=== PATIENT | male | born 1935 | race Caucasian/White ===

== ENCOUNTER 2022-07-20 12:55 | Day surgery (SDC) | payer OTHER ==
[2022-07-15 11:40] LABS: BASOPHILS # (AUTO) 0.1 X10'3 (0-0.2); BASOPHILS % (AUTO) 1.1 % (0-1); EOSINOPHILS # (AUTO) 0.2 X10'3 (0-0.9); HEMATOCRIT 44.9 % (42.0-52.0); HEMOGLOBIN 15.4 g/dl (14.0-17.9); LYMPHOCYTES # (AUTO) 1.2 X10'3 (1.1-4.8); LYMPHOCYTES % (AUTO) 22.9 % (21-51); MEAN CORPUSCULAR HGB CONC 34.3 g/dL (33.0-36.5); MEAN CORPUSCULAR VOLUME 93.2 FL (78-98); MEAN PLATELET VOLUME 7.6 FL (7.4-10.4); MONOCYTES # (AUTO) 0.5 X10'3 (0-0.9); MONOCYTES % (AUTO) 10.6 % (2-12); NEUTROPHILS # (AUTO) 3.1 X10'3 (1.8-7.7); NEUTROPHILS % (AUTO) 61.4 % (42-75); PLATELET COUNT 182 X10'3 (140-440); RED BLOOD COUNT 4.81 X10'6 (4.70-6.10); RED CELL DISTRIBUTION WIDTH 13.6 % (11.5-14.5); WHITE BLOOD COUNT 5.1 X10'3 (4.5-11.0)
[2022-07-15 11:47] LABS: ALBUMIN 3.4 G/DL (3.4-5.0); ANION GAP 1 (8-16); BLOOD UREA NITROGEN 21 MG/DL (7-18); BUN/CREATININE RATIO 20.2 (5.4-32.0); CALCIUM 9.1 MG/DL (8.5-10.1); CHLORIDE 108 MMOL/L (99-107); CREATININE 1.04 MG/DL (0.60-1.10); GLUCOSE 95 MG/DL (70-104); POTASSIUM 4.9 MMOL/L (3.5-5.1); SODIUM 139 MMOL/L (135-145); TOTAL CARBON DIOXIDE 30.5 MMOL/L (24-32); eGFR 68 ML/MIN
[2022-07-15 11:51] LABS: APTT 31 SECONDS (22-32)
[2022-07-20] VITALS (16 sets, daily range): BP systolic 100–155; BP diastolic 58–95
[~2022-07-20] VITALS: Ht 177.8 cm; Wt 133.8 kg
[2022-07-20] MEDS ORDERED: normal saline 1000ml 1,000 ML IV SCH (13:25)
[2022-07-20] MEDS ORDERED: MIDAZolam 1mg/ml 10ml vial IV ONE (13:25)
[2022-07-20] MEDS ORDERED: fentaNYL/PF 50MCG/1 ML 2ML syringe IV ONE (13:25)
[2022-07-20] MEDS ORDERED: CHOL100046 PO (13:55)
[2022-07-20] MEDS ORDERED: APIX5TAB3 PO (13:55)
[2022-07-20] MEDS ORDERED: GABA300C PO (13:55)
[2022-07-20] MEDS ORDERED: CALC-627 PO (13:55)
[2022-07-20] MEDS ORDERED: OXYB10TA30 PO (13:55)
[2022-07-20] MEDS ORDERED: PRED20TA PO (13:55)
[2022-07-20] MEDS ORDERED: SOTA80TA46 PO (13:55)
[2022-07-20] MEDS ORDERED: CYAN100T43 PO (13:55)
[2022-07-20] MEDS ORDERED: ALBU17AE26 INH (13:55)
[2022-07-20] MEDS ORDERED: ASCO500T19 PO (13:55)
[2022-07-20] MEDS ORDERED: AMLO1CAP23 PO (13:55)
== END 2022-07-20 17:10 | disposition home or self-care (01) ==
LOC: SSTAY O 12:55
PROVIDERS: ATTEND Student in an Organized Health Care Education/Training Program
DX: I48.91 Unspecified atrial fibrillation (principal); I10 Essential (primary) hypertension; Z79.899 Other long term (current) drug therapy; Z79.01 Long term (current) use of anticoagulants
CPT/HCPCS: 36415; 80048; 85025; 85610; 85730; 92960; 93005; J7030; A4620

== ENCOUNTER 2024-08-05 10:41 | Emergency (ER) | payer OTHER ==
[~2024-08-05] VITALS: Ht 177.8 cm; Wt 128.0 kg
[~2024-08-05 10:41] MED LIST: ALBU17AE26 INH; AMLO1CAP23 PO; APIX5TAB3 PO; ASCO500T19 PO; CALC-627 PO; CHOL100046 PO; CYAN100T43 PO; GABA300C PO; OXYB10TA30 PO; PRED20TA PO; SOTA80TA46 PO
[2024-08-05 10:44] VITALS: TEMP 97.5
[2024-08-05 11:33] LABS: BASOPHILS % (AUTO) 0.6 % (0-1); EOSINOPHILS # (AUTO) 0.1 X10'3 (0-0.9); EOSINOPHILS % (AUTO) 2.5 % (0-6); HEMATOCRIT 42.3 % (42.0-52.0); HEMOGLOBIN 14.3 g/dl (14.0-17.9); LYMPHOCYTES # (AUTO) 0.9 X10'3 (1.1-4.8); LYMPHOCYTES % (AUTO) 19.4 % (21-51); MEAN CORPUSCULAR HEMOGLOBIN 31.5 PG (27.0-31.0); MEAN CORPUSCULAR HGB CONC 33.8 g/dL (33.0-36.5); MEAN CORPUSCULAR VOLUME 93.4 FL (78-98); MEAN PLATELET VOLUME 7.7 FL (7.4-10.4); MONOCYTES # (AUTO) 0.5 X10'3 (0-0.9); MONOCYTES % (AUTO) 10.3 % (2-12); NEUTROPHILS # (AUTO) 3.2 X10'3 (1.8-7.7); NEUTROPHILS % (AUTO) 67.2 % (42-75); PLATELET COUNT 173 X10'3 (140-440); RED BLOOD COUNT 4.53 X10'6 (4.70-6.10); RED CELL DISTRIBUTION WIDTH 13.5 % (11.5-14.5); WHITE BLOOD COUNT 4.8 X10'3 (4.5-11.0)
[2024-08-05 11:52] LABS: ALANINE AMINOTRANSFERASE 33 U/L (12-78); ALBUMIN 3.3 G/DL (3.4-5.0); ALBUMIN/GLOBULIN RATIO 0.8 (1.1-1.5); ALKALINE PHOSPHATASE 88 IU/L (46-116); ANION GAP 7 (8-16); ASPARTATE AMINO TRANSFERASE 36 U/L (10-37); BILIRUBIN,TOTAL 0.5 MG/DL (0.1-1.0); BLOOD UREA NITROGEN 28 MG/DL (7-18); CALCIUM 8.9 MG/DL (8.5-10.1); CHLORIDE 106 MMOL/L (99-107); CREATININE 1.12 MG/DL (0.60-1.10); GLUCOSE 99 MG/DL (70-104); POTASSIUM 4.8 MMOL/L (3.5-5.1); SODIUM 142 MMOL/L (135-145); TOTAL PROTEIN 7.3 G/DL (6.4-8.2); eCRCL 49 ML/MIN; eGFR 62 ML/MIN
[2024-08-05 11:55] LABS: PRO BRAIN NATRIURETIC PEPTIDE 69 PG/ML (0-450)
[2024-08-05] MEDS: mag hydrox/Alum hydrox/simeth 30ml oral suspension PO ONE (14:27)
[2024-08-05] MEDS: LIDOcaine 2% Viscous 15ml cup MM PRN (14:27)
[2024-08-05 15:38] VITALS: BP 160/67; PULSE 57; RESP 16; O2SAT 98
== END 2024-08-05 16:02 | disposition home or self-care (01) ==
LOC: ER 10:41
DX: R07.89 Other chest pain (principal); Z88.5 Allergy status to narcotic agent; Z79.899 Other long term (current) drug therapy
CPT/HCPCS: 36415; 71045; 80053; 83880; 84484; 85025; 93005; 99285; A6449

== ENCOUNTER 2025-02-14 12:46 | Emergency (ER) | payer OTHER ==
[~2025-02-14] VITALS: Ht 177.8 cm; Wt 131.9 kg
[2025-02-14 13:00] VITALS: TEMP 97.6
[2025-02-14 13:22] LABS: MEAN PLATELET VOLUME 8.1 FL (7.4-10.4); RED CELL DISTRIBUTION WIDTH 13.4 % (11.5-14.5)
--- NOTE | 2025-02-14 13:22 | ELECTROCARDIOGRAPH REPORT ---
[facility] Test Date: 2025-02-14 Test Time: 12:52:09 Pat Name: CHRISTOPHER BATRES Department: EMERGENCY ROOM Room: Gender: M Curam Developer: ADAMS : 1935 Requested By: EARNEST SINGH Order Number: [id number] Reading MD: Measurements Intervals [place] Rate: 99 P: 0 RI: 0 QRS: 97 QRSD: 88 T: 50 QT: 330 QTc: 424 Interpretive Statements Right and left arm electrode reversal, interpretation assumes no reversal Atrial fibrillation Right axis deviation Please click the below link to view image of tracing.
--- NOTE | 2025-02-14 13:31 | RADIOLOGY REPORT ---
EXAM: DI CHEST,SINGLE VIEW Indication: CP Technique: Single frontal view of the chest was obtained Comparison: DI CHEST,SINGLE VIEW on DOS: 08/05/24 FINDINGS: Lines and Tubes: None Lungs: No focal consolidation. Pleura: No effusion. No pneumothorax. Cardiomediastinal contours: Unremarkable. Atherosclerotic vascular calcifications of the thoracic aorta are noted. Bones: No acute osseous abnormality. IMPRESSION: No acute cardiopulmonary disease.
[2025-02-14 13:42] LABS: CREATININE 1.21 MG/DL (0.60-1.10); PRO BRAIN NATRIURETIC PEPTIDE 388 PG/ML (0-450); TOTAL CARBON DIOXIDE 28.7 MMOL/L (24-32); eCRCL 44 ML/MIN; eGFR 57 ML/MIN
--- NOTE | 2025-02-14 16:49 | Physician Documentation ---
History of Present Illness ~ Chief Complaint: Irregular Heartbeat Stated Complaint: IRREG HEART RATE Time Seen by MD: 16:03 Source: patient Exam Limitations: no limitations HPI Mr. Goodson is an 89 y/o male with PMHx significant for paroxysmal A-fib on Eliquis who presents today for evaluation of his A-fib. He states that he wears a smart watch and it told him that he was in A-fib. He is completely asymptomatic. He denies chest pain/pressure/palpitations or discomfort. No SOB or difficulty breathing. Medication Reconciliation Allergies: Coded Allergies: morphine (Verified Allergy, Unknown, 02/14/25) Scheduled Amlodipine Besylate/Benazepril (Lotrel 5-20 Mg Capsule), 1 CAP PO DAILY, (Reported) Apixaban (Eliquis), 1 TAB PO BID, (Reported) Ascorbic Acid/Ascorbate Sodium (Vitamin C 500 mg Tablet Chew), 1 TAB PO DAILY, (Reported) Calcium/Magnesium (Calcium Magnesium Tablet), 1 TAB PO DAILY, (Reported) Cholecalciferol (Vitamin D3) (Vitamin D3), 1 CAP PO DAILY, (Reported) Cyanocobalamin (Vitamin B-12) (Vitamin B-12), 1 TAB PO DAILY, (Reported) Gabapentin (Neurontin), 1 CAP PO DAILY, (Reported) Oxybutynin Chloride (Ditropan Xl), 1 TAB PO DAILY, (Reported) Prednisone* (Prednisone*), 1 TAB PO DAILY, (Reported) Sotalol HCl (Sotalol), 0.5 TAB PO Q12H, (Reported) Scheduled PRN Albuterol (Albuterol), 1 PUFF INH Q6H PRN for SOB or wheezing, (Reported) Review of Systems All Other Systems at this time: Reviewed and Negative Physical Exam Vital Signs: RN Vital Signs have been reviewed: Yes, Temperature: 97.6, Source: Temporal, Heart Rate: 78, Respiratory Rate: 16, BP: 135/81, Pulse Oximetry: 98, Weight: 131.900 Oxygen Flow Rate: 0 General Appearance: alert, WD/WN, no apparent distress EENT: normal ENT inspection Neck: normal inspection Respiratory: lungs clear Chest: no accessory muscle use Cardiovascular: normal peripheral pulses Back: normal inspection Extremities: normal inspection Neurologic: oriented x4 Psych: normal mood/affect Skin: normal color Progress Results/Orders Results/Orders Orders - FONTENETTE,EARNEST W MD Chest,Single View (02/14/25 12:59) Monitor (02/14/25 12:59) Saline Lock (02/14/25 12:59) Oxygen (02/14/25 12:59) Hs Troponin I W Calculations (02/14/25 15:59) Electrocardiogram (02/14/25 16:32) Completed Orders - EARNEST SINGH MD Chest,Single View (02/14/25 12:59) Cbc/Diff (02/14/25 12:59) BMP (02/14/25 12:59) PBNP (02/14/25 12:59) Electrocardiogram (02/14/25 12:59) Hs Troponin I W Calculations (02/14/25 12:59) Hs Troponin I W Calculations (02/14/25 14:59) Vital Signs 02/14/25 02/14/25 13:00 16:05 Temp 97.6 Pulse 76 78 Resp 22 16 B/P (MAP) 113/80 135/81 (99) Pulse Ox 97 98 O2 Flow Rate 0 Laboratory Tests Test 02/14/25 13:14 02/14/25 15:08 White Blood Count 5.4 Red Blood Count 4.49 L Hemoglobin 14.1 Hematocrit 42.2 Mean Corpuscular Volume 93.9 Mean Corpuscular Hemoglobin 31.5 H Mean Corpuscular Hemoglobin Concent 33.5 Red Cell Distribution Width 13.4 Platelet Count 203 Mean Platelet Volume 8.1 Neutrophils (%) (Auto) 65.0 Lymphocytes (%) (Auto) 20.8 L Monocytes (%) (Auto) 10.6 Eosinophils (%) (Auto) 2.9 Basophils (%) (Auto) 0.7 Neutrophils # (Auto) 3.5 Lymphocytes # (Auto) 1.1 Monocytes # (Auto) 0.6 Eosinophils # (Auto) 0.2 Basophils # (Auto) 0.0 CBC Comment Sodium Level 140 Potassium Level 5.3 H Chloride Level 106 Carbon Dioxide Level 28.7 Anion Gap 5 L Blood Urea Nitrogen 29 H Creatinine 1.21 H Estimated GFR/1.73 m2 57 BUN/Creatinine Ratio 24.0 H Glucose Level 107 H Calcium Level 9.2 Troponin I High Sensitivity 7 7 Pro-B-Type Natriuretic Peptide 388 Albumin 3.2 L Chemistry Comments Troponin I High Sens Percent Delta 0 Troponin I Hi Sens Absolute Change 0 EKG/XRAY/CT/US/VASC/MRI EKG : Intepreting Monitor?: Yes Additional Comment EKG (as interpreted by me): Time obtained: 1252 Time interpreted by me: 1253 Rate: 99 Rhythm: Atrial fibrillation [facility]: RAD ST waves: Nonspecific Interpretations: Atrial Fibrillation Medical Decision Making Differential Dx:Considerations: Include: angina / NV, atrial dysrhythmia, atrial fibrillation, atrial flutter, MAT, PACs, PSVT, sinus tachycardia, WPW, 3rd degree AV block Additional Information Mr. Goodson is an 89 y/o male with PMHx significant for pA-fib who presents to the ED for evaluation of his A-fib. While here in the ED, he remained hemodynamically normal with ABC's intact and in NAD. He is afebrile and nontoxic. I reviewed his EKG and it shows A-fib with a rate of 99. He is asymptomatic. He is currently prescribed Eliquis for secondary Stroke prevention. Troponin was flat. Lytes are within normal ranges. No leukocytosis or left shift. I have low clinical suspicion for ACS or an acute infectious process. We discussed admission for evaluation by Cardiology but he requested to go home and follow-up outpatient and that he would continue taking his Eliquis as prescribed. He was given follow-up and return instructions. He voiced understanding and agreement with d/c instructions. Departure Disposition: HOME / SELF CARE / HOMELESS Impression: Primary Impression: Atrial fibrillation Condition: Improved Referrals: NO PRIMARY CARE PROVIDER (PCP) Education Educated: Patient, Family Educated regarding: diagnosis, treatment Signature Scribe Signature: N/A Attestation: N/A EARNEST SINGH MD Feb 14, 2025 16:49
[2025-02-14 16:59] VITALS: BP 124/70; PULSE 81; RESP 20; O2SAT 98
== END 2025-02-14 17:02 | disposition home or self-care (01) ==
LOC: ER 12:47
DX: I48.0 Paroxysmal atrial fibrillation (principal); Z79.01 Long term (current) use of anticoagulants; Z88.5 Allergy status to narcotic agent; Z79.899 Other long term (current) drug therapy
CPT/HCPCS: 36415; 71045; 80048; 83880; 84484; 85025; 93005; 99285